=== PATIENT | male | born 2000 | race Caucasian/White ===

== ENCOUNTER 2021-12-07 16:06 | Emergency (ER) | payer OTHER ==
[~2021-12-07] VITALS: Ht 167.6 cm; Wt 70.9 kg
[2021-12-07] MEDS ORDERED: LIDOCAINE 2% MDV 20ML VIAL SC ONE (17:05)
[2021-12-07 18:04] VITALS: BP 122/71
== END 2021-12-07 18:06 | disposition home or self-care (01) ==
LOC: M ED 16:06
DX: S61.215A Laceration without foreign body of left ring finger without damage to nail, initial encounter (principal); W26.0XXA Contact with knife, initial encounter; Y92.010 Kitchen of single-family (private) house as the place of occurrence of the external cause; Y93.G3 Activity, cooking and baking; Z77.098 Contact with and (suspected) exposure to other hazardous, chiefly nonmedicinal, chemicals

== ENCOUNTER 2021-12-15 20:23 | Emergency (ER) | payer OTHER ==
[~2021-12-15] VITALS: Ht 167.6 cm; Wt 69.3 kg
[2021-12-15 20:25] VITALS: BP 142/84
== END 2021-12-15 21:24 | disposition home or self-care (01) ==
LOC: M ED 20:23
DX: Z48.02 Encounter for removal of sutures (principal)

== ENCOUNTER → 2023-02-05 | Outpatient (CLI) | payer OTHER | LOC: M OUTALCOH 07:34 | PROVIDERS: ATTEND Psychiatry & Neurology Psychiatry | DX: Z03.89 Encounter for observation for other suspected diseases and conditions ruled out (principal) ==

== ENCOUNTER 2023-02-12 12:52 | Outpatient (RCR) | payer OTHER | END 2023-02-13 | LOC: M OUTALCOH 12:52 | PROVIDERS: ATTEND Psychiatry & Neurology Psychiatry | DX: F10.10 Alcohol abuse, uncomplicated (principal); Z72.0 Tobacco use ==

== ENCOUNTER 2023-03-13 07:57 | Outpatient (RCR) | payer OTHER | END 2023-03-15 | LOC: M OUTALCOH 07:57 | PROVIDERS: ATTEND Psychiatry & Neurology Psychiatry | DX: F10.10 Alcohol abuse, uncomplicated (principal); Z72.0 Tobacco use ==

== ENCOUNTER 2023-04-09 15:56 | Outpatient (RCR) | payer OTHER | END 2023-04-15 | LOC: M OUTALCOH 15:56 | PROVIDERS: ATTEND Psychiatry & Neurology Psychiatry | DX: F10.10 Alcohol abuse, uncomplicated (principal); Z72.0 Tobacco use ==

== ENCOUNTER 2023-04-17 10:46 | Outpatient (RCR) | payer OTHER | END 2023-05-15 | LOC: M OUTALCOH 10:46 | PROVIDERS: ATTEND Psychiatry & Neurology Psychiatry | DX: F10.10 Alcohol abuse, uncomplicated (principal); Z72.0 Tobacco use ==